=== PATIENT | female | born 1990 | race African-American/Black ===

== ENCOUNTER 2021-02-16 08:41 | Emergency (ER) | payer OTHER ==
[~2021-02-16] VITALS: Ht 165.1 cm; Wt 99.8 kg
[~2021-02-16 08:41] MED LIST: APAP500 PO; DERMOPLAST SPRA56 ML; FLAGYL500 MG PO; IBUPROFEN 800800 M1 PO; KEFLEX500 MG PO; LANOLIN56 GM; PRENATAL TABLE1 EAC3 PO; TUCKS MEDICATE1 EAC1
[2021-02-16] MEDS ORDERED: BIRTH CONTROL (09:01)
[2021-02-16] MEDS ORDERED: [UNRECOGNIZED DRUG - OTHER] (09:01)
[2021-02-16 09:03] LABS: URINE BILIRUBIN NEGATIVE (Negative); URINE BLOOD TRACE (Negative); URINE CLARITY CLEAR; URINE COLOR YELLOW; URINE GLUCOSE-RANDOM* NEGATIVE (Negative); URINE KETONES NEGATIVE (Negative); URINE LEUKOCYTES-REFLEX NEGATIVE (Negative); URINE NITRITE-REFLEX NEGATIVE (Negative); URINE PROTEIN (DIPSTICK) 1+ (Negative); URINE SPECIFIC GRAVITY 1.015 (1.005-1.035)
[2021-02-16 09:12] LABS: CASTS None Seen /LPF (None Seen); SQUAMOUS 4-10 Moderate /LPF (0-3)
[2021-02-16 09:13] LABS: BACTERIA-REFLEX 1-9 Few /HPF (None Seen); CRYSTALS None Seen /LPF (None Seen); URINE RBC 1-2 Rare /HPF (NONE SEEN); URINE WBC-REFLEX 0-5 Rare /HPF (0-5)
[2021-02-16 09:37] LABS: ABSOLUTE NEUTROPHILS 4.3 thou/uL (1.4-8.2); BASOPHILS 0.4 % (0.0-2.0); EOSINOPHILS 0.5 % (0.0-3.0); HEMATOCRIT 36.8 % (37.0-47.0); HEMOGLOBIN 12.9 gm/dL (12.0-15.0); LYMPHOCYTES 19.3 % (24.0-44.0); MCH 30.3 pg (26.0-34.0); MCV 86.5 fL (80.0-100.0); MONOCYTES 16.6 % (1.0-8.0); PLATELET COUNT 250 thou/uL (150-400); POLYS 63.2 % (36.0-66.0); RBC 4.26 mil/uL (4.20-5.00); RDW 13.4 % (10.5-14.5); WBC 6.8 thou/uL (4.0-11.0)
[2021-02-16 09:48] LABS: CREATININE 0.8 mg/dL (0.6-1.0); POTASSIUM 3.6 mmol/L (3.5-5.1)
[2021-02-16 09:54] LABS: ALBUMIN 3.2 g/dL (3.4-5.0); TOTAL BILIRUBIN 0.3 mg/dL (0.2-1.0); TOTAL PROTEIN 8.4 g/dL (6.4-8.2)
[2021-02-16] MEDS ORDERED: TYLENOL325 M1 PO (10:43)
[2021-02-16] MEDS ORDERED: ZOFRAN ODT4 MG PO (10:43)
[2021-02-16] MEDS ORDERED: IMODIUM A-D2 MG PO (10:43)
[2021-02-16 11:12] VITALS: BP 101/52
[2021-02-17] MEDS ORDERED: MIRENA1 EACH INTRAUTERI (23:04)
== END 2021-02-16 11:23 | disposition home or self-care (01) ==
LOC: ER 08:41
PROVIDERS: Emergency Medicine
DX: R11.2 Nausea with vomiting, unspecified (principal); R19.7 Diarrhea, unspecified; M79.10 Myalgia, unspecified site; Z79.899 Other long term (current) drug therapy; Z20.822 Contact with and (suspected) exposure to COVID-19

== ENCOUNTER 2021-02-17 22:55 | Inpatient (IN) | payer OTHER ==
[~2021-02-17] VITALS: Ht 165.1 cm; Wt 97.5 kg
[~2021-02-17 22:55] MED LIST changes: +BIRTH CONTROL; +IMODIUM A-D2 MG PO; +TYLENOL325 M1 PO; +ZOFRAN ODT4 MG PO; +[UNRECOGNIZED DRUG - OTHER]
[2021-02-17 23:00] VITALS: BP 121/99
[2021-02-17] MEDS ORDERED: MIRENA1 EACH INTRAUTERI (23:04)
[2021-02-17 23:23] LABS: ANION GAP 15 mmol/L (7-16); BUN 6 mg/dL (7-18); CALCIUM 8.8 mg/dL (8.5-10.1); CHLORIDE 98 mmol/L (98-107); CO2 23 mmol/L (21-32); CREATININE 0.9 mg/dL (0.6-1.0); GLUCOSE 99 mg/dL (74-106); POTASSIUM 3.4 mmol/L (3.5-5.1); SODIUM 136 mmol/L (136-145)
[2021-02-17 23:29] LABS: HEMATOCRIT 38.5 % (37.0-47.0); HEMOGLOBIN 13.2 gm/dL (12.0-15.0); MCH 29.7 pg (26.0-34.0); MCHC 34.4 g/dL (28.0-37.0); MCV 86.3 fL (80.0-100.0); PLATELET COUNT 280 thou/uL (150-400); RBC 4.46 mil/uL (4.20-5.00); RDW 13.5 % (10.5-14.5); WBC 7.9 thou/uL (4.0-11.0)
[2021-02-17 23:33] LABS: ALBUMIN 3.2 g/dL (3.4-5.0); AMYLASE 212 U/L (25-115); DIRECT BILIRUBIN 0.3 mg/dL (<0.1-0.2); LIPASE 542 U/L (73-393); SGOT 57 U/L (15-37); SGPT 92 U/L (30-65); TOTAL BILIRUBIN 0.8 mg/dL (0.2-1.0); TOTAL PROTEIN 8.8 g/dL (6.4-8.2); TROPONIN-I <0.06 ng/mL (<0.06)
[2021-02-18] VITALS (7 sets, daily range): BP systolic 102–139; BP diastolic 62–80
[2021-02-18] LABS: ABSOLUTE NEUTROPHILS 4.2 thou/uL (1.4-8.2); ATYPICAL LYMPHS 1 %
[2021-02-18 00:01] LABS: LARGE PLATELETS OCCASIONAL; NUCLEATED RBCS 0 /100WBC
[2021-02-18 00:22] LABS: URINE BILIRUBIN 2+ (Negative); URINE BLOOD 2+ (Negative); URINE CLARITY CLEAR; URINE COLOR YELLOW; URINE GLUCOSE-RANDOM* TRACE (Negative); URINE KETONES 1+ (Negative); URINE LEUKOCYTES-REFLEX TRACE (Negative); URINE NITRITE-REFLEX NEGATIVE (Negative); URINE PROTEIN (DIPSTICK) 2+ (Negative); URINE SPECIFIC GRAVITY 1.025 (1.005-1.035); URINE UROBILINOGEN >= 8.0 E.U./dl (0.2-1.0)
[2021-02-18 00:27] LABS: ICTOTEST (BILI CONFIRMATORY) Positive (Negative)
[2021-02-18 00:30] LABS: BACTERIA-REFLEX 1-9 Few /HPF (None Seen); CASTS None Seen /LPF (None Seen); CRYSTALS None Seen /LPF (None Seen); MUCUS 4-6 Moderate strn/LPF (None Seen); SQUAMOUS None Seen /LPF (0-3); URINE RBC 1-2 Rare /HPF (NONE SEEN); URINE WBC-REFLEX 6-15 Few /HPF (0-5)
[2021-02-18 00:31] LABS: AMORPHOUS URATES Few /LPF (None Seen); TRANSITIONAL EPITHEL CELL 4-10 Moderate /LPF (None Seen)
--- NOTE | 2021-02-18 00:53 | NUR ---
HAND OFF TOOL SENT TO [facility]
--- NOTE | 2021-02-18 03:31 | NUR ---
PT WAS ADMITTED TO THE UNIT FROM THE ER IN A STABLE CONDITION.PT NPO SINCE ADMIT FOR POSSIBLE SURGERY LATER TODAY.ADMISSION HX,EDUCATION AND ASSESSMENT COMPLETED.PT DENIED PAIN ON ADMIT.FALL EDUCATION GIVEN,PT VOICED UNDERSTANDING.PT CONT ON IVF.POTASSIUM LOW,BEING REPLACED.PT ABLE TO MAKE HER NEEDS KNOWN.CALL LIGHT WITHIN REACH.
[2021-02-18 06:54] LABS: ALBUMIN 2.9 g/dL (3.4-5.0); ANION GAP 12 mmol/L (7-16); BUN 7 mg/dL (7-18); CALCIUM 8.7 mg/dL (8.5-10.1); CHLORIDE 102 mmol/L (98-107); CHOLESTEROL 133 mg/dL (<200); CO2 25 mmol/L (21-32); CREATININE 0.8 mg/dL (0.6-1.0); GLUCOSE 97 mg/dL (74-106); HDL CHOLESTEROL 33 mg/dL (>40); LDL CHOLESTEROL 86 mg/dL (<100); POTASSIUM 3.9 mmol/L (3.5-5.1); SGOT 50 U/L (15-37); SGPT 83 U/L (30-65); SODIUM 139 mmol/L (136-145); TOTAL BILIRUBIN 0.6 mg/dL (0.2-1.0); TOTAL PROTEIN 8.1 g/dL (6.4-8.2); TRIGLYCERIDE 74 mg/dL (<150); VLDL 15 mg/dL (<40)
--- NOTE | 2021-02-18 10:01 | NUR ---
Received awake on bed. Due medications given as prescribed. On MS, not on telemetry; no complains and signs of chest pain, crushing sensation and heaviness. Assisted in ADLs. Vital signs stable. On room air. No nausea and no vomiting noted upon assessment. Continent of bowel and bladder, able to go to the toilet independently. With NS at 126cc/hr, infusing well at R AC. With consult to general surgery and gastro, night RN called in consult; a/w for physician's rounds. Mouth swabs provided for patient. To continue monitoring patient. With orders for stat rapid covid swab- specimen obtained and sent to lab.
--- NOTE | 2021-02-18 10:54 | NUR ---
ASSESSMENT: CM REVIEWED CHART AND SPOKE WITH PATIENT. PT IS ALERT AND ORIENTED X4. PT WAS ADMITTED DUE TO GALLSTONE PANCREATITIS/UTI. PT REPORTS LIVING IN A HOUSE WITH HER CHIDLREN. PT STATES SHE IS FULLY INDEPENDENT WITH ADLS AND AMBULATION. PT REPORTS SHE HAS NO PCP. PT HAS MEDICAID. CM ENCOURAGED PATIENT TO CONTACT THE NUMBER ON HER CARD TO FIND A PCP IN NETWORK AND ESTABLISH A PCP SHE MAY NEED FOLLOW UP CARE. CM ALSO PROVIDED PATIENT WITH [employer] CONTACT INFO. PT REPORTS SHE SHOULD HAVE NO FURTHER NEEDS FROM CM. GENERAL SURGERY IS FOLLOWING PATIENT. CM WILL CONTINUE TO FOLLOW TO ASSIST NEEDED.
--- NOTE | 2021-02-19 01:47 | NUR ---
ASSUMED PT CARE AT 1900.PT C/O HEADCHE,MANAGED WITH TYLENOL.PT NPO AT THIS TIME FOR SURGERY LATER IN THE DAY.LOW GRADE TEMP NOTED AT THE START OF SHIFT.PT HAD A VISITOR IN HER ROOM PAST VISITNG HOURS.PT STATED THAT SHE WAS TOLD THAT THE VISITOR CAN SPEND THE NIGHT.PT NOTIFIED OF VISITING HOURS. VISITOR LATER LEFT.PT SLEEPING ON HER BED AT THIS TIME.PT CONT ON IVF AND IV ABX.CALL LIGHT WITHIN REACH.
[2021-02-19 08:08] VITALS: BP 136/88
--- NOTE | 2021-02-19 10:21 | NUR ---
Assumed pt care at 7am.Pt in bed sleeping but arousable.Assessment completed. vss. Pt wanted to know time for surgery today.Rn told pt that She will be picked up around 9am per Pacu report.Urine sample obtained and sent for lab for test.Around 9am,pt left for surgery per bed.Will continue to monitor.
--- NOTE | 2021-02-19 11:15 | NUR ---
ON-GOING ASSESSMENT: CM REVIEWED CHART. PT IS FEBRILE AND PLANS ARE FOR PATIENT TO GET LAP ADELINA TODAY. PT WILL REMAIN IN HOSPITAL. CM WILL CONTINUE TO FOLLOW TO ASSIST NEEDED.
[2021-02-19 12:20] VITALS: BP 110/69
[2021-02-19 13:25] VITALS: BP 112/67
[2021-02-19 21:12] VITALS: BP 112/57
--- NOTE | 2021-02-20 06:12 | NUR ---
pt had good night. lap site intact no issues noted. pt up @ 0550 stating pain crying 05/04 gave prn 0xycodone. will continue to monitor.pt up thru noc to bathroom had large bm formed.
[2021-02-20 07:30] VITALS: BP 129/90
--- NOTE | 2021-02-20 09:38 | NUR ---
AG WAS NOTIFIED BY ANA LILIA RN THAT PATIENTS MEDICAID ONLY HAS WOMENS HEALTH COVERAGE,NO INPATIENT COVERAGE. [employer] WILL SCREEN PATIENT. CM PROVIDED PATIENT WITH SAFETY NET CLINIC INFORMATION WELL CONTACTS FOR [facility] AND [facility]. PT ALSO REQUESTING NUMBER FOR MEDICAL RECORDS, AG PROVIDED HER WITH THIS.
[2021-02-20] MEDS ORDERED: PEPCID20 MG PO (11:07)
[2021-02-20] MEDS ORDERED: PERCOCET 5-3251 EACH PO (11:07)
[2021-02-20] MEDS ORDERED: TYLENOL325 MG PO (11:07)
--- NOTE | 2021-02-20 11:20 | NUR ---
PT ASSESSED THIS AM. STATES SHE'S FEELING GREAT. TOLERATED FULL LIQUIDS AND WILL ADVANCE TO SOLIDS FOR LUNCH AND DISCHARGE AFTER IF TOLERATES.
[2021-02-20 14:39] VITALS: BP 131/76
--- NOTE | 2021-02-20 15:10 | NUR ---
PT ASSESSED THIS AM. PAIN MED GIVEN W/ GOOD RELIEF. AMBULATED THE HALLS AND TOOK SHOWER. LAP SITES INTACT. TOLERATING SOLID FOOD W/O NAUSEA. PT TO HAVE DR. SHAFFER OFFICE FILL OUT [facility] PAPER WORK FOR HER. PT DC'D AT THIS TIME.
[2021-02-20] MEDS ORDERED: AUGMENTIN 875-1 EACH PO (16:53)
--- NOTE | 2021-02-20 18:06 | PATH ---
[facility] [address] [place] [address] PATHOLOGY RPT PROCEDURE Name: AILYN MARTÍNEZ Room #: 433-I [facility] IN .R.#: [id number] Admission: 02/18/21 Date of : 86 Discharge: 02/20/21 Report #: [id number] Path Case #: [id number] [facility] Accession Number: [id number] . 01 Material submitted: . gallbladder - GALLBLADDER . 01 Clinical history: . PANCREATITIS, ABDOMINAL PAIN LAPAROSCOPIC CHOLECYSTECTOMY WITH G GALLSTONE PANCREATITIS . 02 Diagnosis: Gallbladder, cholecystectomy: - Mild chronic cholecystitis. - Cholelithiasis. 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 02 Electronically signed: . Shelby Benavides MD, Pathologist NPI- [id number] . 01 Gross description: . Fixative: Formalin Labeled: "Ailyn Martínez and gallbladder" Specimen received: A previously opened gallbladder Dimensions: 8.7 x 3.5 x 1.3 cm Weight: 12 g Serosa: Dull to glistening jiménez-esquivel Lymph node: Not present Mucosa: Velvety green to esquivel brown bile-stained Average wall thickness: 0.1-0.2 cm Calculi: 2 raqktt-cjfx-gwcrey calculi ranging from 1.2-1.4 cm in greatest dimension Abnormalities: No grossly apparent lesions. A1- Music Specialist surgical margin (inked black), body, fundus, and the cystic duct (inked red ). (BLJ; BLJ/BLJ 02/20/2021 1439 Local . 02 Pathologist provided ICD-10: K80.10 . 02 CPT . 384907 Specimen Comment: A courtesy copy of this report has been sent to [phone], [place] [address] PATHOLOGY RPT PROCEDURE Name: AILYN MARTÍNEZ R Room #: 433-I [facility] IN [facility]#: [id number] Admission: 02/18/21 Date of : 86 Discharge: 02/20/21 Report #: [id number] Path Case #: [id number] Specimen Comment: [id number] Specimen Comment: Report sent to / DR SIU Performed at: 01 [facility] Ezio Ann [address] [place] [address] [address], [place] [id number] MD Naseem Shearer MD Phone: [phone] Performed at: [address], [place], [place] [id number] MD Shelby Benavides MD Phone: [phone]
== END 2021-02-20 16:00 | disposition home or self-care (01) | DRG 417 ==
LOC: ER 22:55 → 4S 02-18 00:45 → EROBS 02-18 00:45 → 4S 02-18 01:27
PROVIDERS: Emergency Medicine; Nurse Practitioner Family; ADMIT Hospitalist; ATTEND Hospitalist
PROC: 0FT44ZZ Resection of Gallbladder, Percutaneous Endoscopic Approach (ICD-10-PCS; principal; 2021-02-19)
PROC: BF5C2Z0 Other Imaging of Hepatobiliary System, All using Fluorescing Agent, Intraoperative (ICD-10-PCS; principal; 2021-02-19)
DX: K80.20 Calculus of gallbladder without cholecystitis without obstruction (principal); K85.10 Biliary acute pancreatitis without necrosis or infection; N39.0 Urinary tract infection, site not specified; Z20.822 Contact with and (suspected) exposure to COVID-19; D18.03 Hemangioma of intra-abdominal structures; Z79.899 Other long term (current) drug therapy; Z83.3 Family history of diabetes mellitus; Z82.49 Family history of ischemic heart disease and other diseases of the circulatory system
CPT/HCPCS: 10102; 50010; 50101; 50411; 50555; 50558; 51489; 52265; 52266; 53307; 53310; 53312; 54022; 54118; 55245; 56462; 56525; 56526; 56674; 58574; 62110; 62900; 70005